=== PATIENT | female | born 1990 | race Caucasian/White ===

== ENCOUNTER 2017-10-25 20:49 | Emergency (ER) | payer OTHER ==
[~2017-10-25] VITALS: Ht 162.6 cm; Wt 72.6 kg
--- NOTE | 2017-10-25 21:05 | NUR ---
ADRILE 89 FROM HOME FOR ANXIETY S/P TAKING 1/2 GEL SATIVA GUMMY. A/OX 2-3, BUT LETHARGIC. BREATHING EVEN AND UNLABORED. NO SOB. VITALS STABLE. SAFETY AND COMFORT MEASURES IN PLACE. AWAITING MD ORDERS.
[2017-10-25 22:18] VITALS: BP 123/72
--- NOTE | 2017-10-25 22:19 | NUR ---
Patient discharged to home in stable condition. Written and verbal after care instructions given. Patient verbalizes understanding of instruction.
== END 2017-10-25 22:18 | disposition home or self-care (01) ==
LOC: ER 20:50
DX: F12.929 Cannabis use, unspecified with intoxication, unspecified (principal); F41.9 Anxiety disorder, unspecified; F32.9 Major depressive disorder, single episode, unspecified
CPT/HCPCS: 99283; A4606 ×2; Z7610 ×2